=== PATIENT | male | born 2000 | race Caucasian/White ===

== ENCOUNTER 2023-09-17 14:12 | Emergency (ER) | payer BC ==
[2023-09-17 15:03] LABS: APPEARANCE,URINE CLEAR (Clear); BILIRUBIN,URINE NEGATIVE (Negative); COLOR,URINE YELLOW (Yellow); GLUCOSE,URINE NEGATIVE (Negative); KETONES,URINE NEGATIVE (Negative); LEUKOCYTE ESTERASE,URINE NEGATIVE (Negative); NITRITE,URINE NEGATIVE (Negative); OCCULT BLOOD,URINE NEGATIVE (Negative); PH,URINE 6.5 (5.0-8.0); PROTEIN,URINE NEGATIVE (Negative); UROBILINOGEN,URINE 0.2 (0.2-1.0)
[2023-09-17] MEDS: cefTRIAXone 1 GM, Lidocaine 1% 2.1 ML IM ONE (16:57)
[2023-09-17] MEDS: Acetaminophen 325 MG Tab PO ONE (16:59)
== END 2023-09-17 17:35 | disposition home or self-care (01) ==
LOC: JD.ED 14:12
DX: N45.1 Epididymitis (principal); F17.210 Nicotine dependence, cigarettes, uncomplicated; Z88.1 Allergy status to other antibiotic agents
CPT/HCPCS: 76870; 81003; 93975; 96372; 99284; A9270; J0696; J3490